=== PATIENT | female | born 1985 | race Caucasian/White ===

== ENCOUNTER 2017-05-20 06:55 | Emergency (ER) | payer OTHER ==
--- NOTE | 2017-05-20 07:20 | EDPHY ---
H & P Time Seen by Provider: 05/20/17 07:19 HPI/ROS: Chief complaint. Shoulder injury HPI. 31-year-old female presents with 1 day history right shoulder and elbow pain after throwing boxes at work yesterday. She was throwing multiple boxes weighing 50-60 lb at work. There was no fall or discrete injury. It was repetitive motion. Last night and through the night she has had pain to her right shoulder and right elbow. Increased pain with range of motion. No history of shoulder or elbow problems. She is right handed. She has been using Tylenol and ibuprofen with inadequate relief. ROS Constitutional. no fever/chills, no weakness Eyes. no problems with vision ENT. no sore throat, no nasal drainage Cardiovascular. no chest pain Respiratory. no shortness of breath, no cough Abdominal. no abdominal pain, no nausea/vomiting, no diarrhea . no problems urinating MS. Right shoulder and right elbow pain Skin. no rash Lymph. no swollen glands Neuro. no headache, no dizziness, no difficulty walking or with speech Past Medical/Surgical History: Anxiety, migraines, tonsil and sinus surgery Social History: Single, nonsmoker, no alcohol Smoking Status: Never smoked Physical Exam: General Appearance: Alert well-developed female mild distress vital signs are stable Eyes: Pupils equal and round no pallor or injection. ENT, Mouth: Mucous membranes are moist. Respiratory: There are no retractions, lungs are clear to auscultation. Cardiovascular: Regular rate and rhythm. Gastrointestinal: Abdomen is soft and nontender, no masses, bowel sounds normal. Neurological: Awake and alert, sensory and motor exams grossly normal. Skin: Warm and dry, no rashes. Musculoskeletal: Neck is supple nontender. Extremities tenderness to posterior and anterior right shoulder without swelling or deformity. Pain to the medial and lateral aspect of the right elbow. Again no swelling or obvious deformity. Wrist is normal. Distal motor vascular sensitivity intact Psychiatric: Patient is oriented X 3, there is no agitation. Constitutional: Initial Vital Signs Temperature (C) 36.7 C 05/20/17 06:59 Heart Rate 111 H 05/20/17 06:59 Respiratory Rate 20 05/20/17 06:59 Blood Pressure 115/104 H 05/20/17 06:59 O2 Sat (%) 99 05/20/17 06:59 O2 Delivery Mode Room Air Allergies/Adverse Reactions: No Known Allergies Allergy (Unverified 05/20/17 06:58) Home Medications: Medication Instructions Recorded Citalopram 05/20/17 Depo-Provera 05/20/17 Effexor 05/20/17 Hydrocodone/APAP 5/325 [[place] 1 each PO Q4-6PRN PRN #10 tab 05/20/17 5/325 (*)] Topamax 05/20/17 Medical Decision Making - Diagnostics Imaging Results: Imaging Impressions Elbow X-Ray 05/20/17 07:25 Impression: Negative for fracture. Shoulder X-Ray 05/20/17 07:25 Impression: Negative for fracture. X-ray right shoulder and right elbow reviewed by me and are normal ED Course/Re-evaluation: Re-evaluation 8:45 a.m.. Patient and I discussed x-ray findings, treatment plan , criteria for return, importance of follow-up and further evaluation. She expresses understanding and agreement Differential Diagnosis: I considered fracture, dislocation. This appears to be over use injury. Normal x-rays. Departure - Departure Disposition: Home, Routine, Self-Care Clinical Impression: Right shoulder strain Qualifiers: Encounter type: initial encounter Qualified Code(s): S46.911A - Strain of unspecified muscle, fascia and tendon at shoulder and upper arm level, right arm , initial encounter Condition: Good Instructions: Shoulder Sprain (ED) Additional Instructions: Ice off and on next 24-48 hours. Sling until comfortable without. Ibuprofen 600 mg every 6 hours. Hydrocodone in addition for pain. Return for worsening symptoms. Re-evaluation by work[employer] in the next 2-3 days. Referrals: Emmie Delgado MD [Primary Care Provider] - As per Instructions Stand Alone Forms: Work Comp Follow Up, Work Excuse Prescriptions: Hydrocodone/APAP 5/325 [[place] 5/325 (*)] 1 each PO Q4-6PRN PRN #10 tab PRN Reason: Pain, Moderate
[2017-05-20 09:20] VITALS: BP 122/103; PULSE 99; RESP 15; TEMP 98.8; O2SAT 95
== END 2017-05-20 09:20 | disposition home or self-care (01) ==
DX: S46.911A Strain of unspecified muscle, fascia and tendon at shoulder and upper arm level, right arm, initial encounter (principal); X50.0XXA Overexertion from strenuous movement or load, initial encounter; Y92.69 Other specified industrial and construction area as the place of occurrence of the external cause; Y99.8 Other external cause status; Y93.89 Activity, other specified
CPT/HCPCS: A4565